=== PATIENT | male | born 1975 | race Caucasian/White ===

== ENCOUNTER → 2023-04-24 | Day surgery (SDC) | payer OTHER ==
[~2023-04-24] MED LIST: Lactated Ringers 1,000 ML IV SCH; Midazolam 1 MG/ML 2 ML SDV ONE; Propofol 200 MG/20 ML SDV ONE; fentaNYL 50 MCG/ML SDV ONE
== END ==
LOC: JP.SDS 07:52
PROVIDERS: ATTEND Student in an Organized Health Care Education/Training Program
DX: K62.5 Hemorrhage of anus and rectum (principal); G47.33 Obstructive sleep apnea (adult) (pediatric); F41.9 Anxiety disorder, unspecified
CPT/HCPCS: 45378; J2250; J2704; J3010; J7120